=== PATIENT | female | born 1990 | race Caucasian/White ===

== ENCOUNTER 2017-10-14 08:02 | Day surgery (SDC) | payer MEDICAID ==
[~2017-10-14 08:02] MED LIST: ACETAMINOPHEN 1,000 MG/100 ML BTL IV ONE; CEFAZOLIN 2 Gram 2 GM/50 ML BAG IVPB ONE; FAMOTIDINE 20MG TABLET PO ONE; MECLIZINE 25 MG TABLET PO ONE; METOCLOPRAMIDE 10 MG TABLET PO ONE
[2017-10-14] MEDS ORDERED: LIDOCAINE 2% MDV (20MG/ML) 20ML VIAL IV ONE (08:03)
[2017-10-14] MEDS ORDERED: SCOPOLAMINE 1 PATCH TDSY TD ONE (08:03)
[2017-10-14] MEDS ORDERED: SEVOFLURANE 250 ML INH ONE (08:03)
[2017-10-14] MEDS ORDERED: ONDANSETRON HCL IV 4 MG/2 ML VIAL IVP ONE (08:03)
[2017-10-14] MEDS ORDERED: PROPOFOL 10 MG/ML VIAL IV ONE (08:03)
[2017-10-14] MEDS ORDERED: KETOROLAC 30 MG/ML VIAL IVP ONE (08:03)
[2017-10-14] MEDS ORDERED: SUFENTANIL CITRATE 50 MCG/ML AMPUL IV ONE (08:03)
--- NOTE | 2017-10-15 07:59 | Operative Note ---
DATE OF SURGERY: 10/14/2017. PREOPERATIVE DIAGNOSIS: Right knee anterior cruciate ligament rupture. POSTOPERATIVE DIAGNOSIS: Right knee anterior cruciate ligament rupture. OPERATION: Anterior cruciate ligament assisted reconstruction. Bone-patellar- tendon-bone autograft, right knee. SURGEON: Buck Collier M.D. ANESTHESIA: Spinal. COMPLICATIONS: None. ESTIMATED BLOOD LOSS: Minimal. OPERATIVE FINDINGS: Complete rupture of the anterior cruciate ligament. COMPONENTS PLACED: Two Arthrex Biointerference screws, sizes 8.0 mm x 23 mm and 7.0 mm x 23 mm. INDICATIONS: This is an 27-year-old female who fell and twisted her knee at home. She felt a pop and was diagnosed with an obvious anterior cruciate ligament by MRI. She scheduled for reconstruction. I explained to her all risks and benefits of surgery in detail for the diagnosis and procedures including but not limited to infection, nerve injury, vessel injury, persistent pain, stiffness, numbness and tingling in her knee, periprosthetic fracture, need for resection arthroplasty should the components become infected or loosened, re-rupture of the anterior cruciate ligament, the need for further procedures, and stiffness. All of her questions were answered. The treatment and course were outlined, and she agreed to proceed. PROCEDURE: The patient brought to the operating room. She was placed in the supine position and was prepared for surgery. Spinal anesthesia was induced. Her right lower extremity and knee were prepped and draped in sterile fashion. She had been placed in a nonsterile leg geronimo previously. The tourniquet was applied. The right knee was prepped again with ChloraPrep and draped. Intraoperative time out was performed. Next, preoperative examination revealed full knee range of motion with slight effusion. However, there was significant laxity with 2+ anterior drawer, Liseth's, and pivot shift. Next, we began to harvest the graft. I made an incision anterior to the knee and infiltrated with 0.5% Marcaine with epinephrine. The skin and subcutaneous tissue was dissected down to the patella and the tibial tubercle. We marked out 1.0 x 2.5 cm bone blocks proximally and distally. I then used the microsagittal saw to cut in 1.0 cm. I drilled two tag hole drill holes in each bone block. I placed #2 FiberWire sutures through them, and we connected to the bone plugs with a sharp #10 blade. I had a nice 10 mm [id number] autograft. We then prepped it on the back table for the 10 mm hole which was 100 mm in length. Attention was then turned to the arthroscopic examination. I placed superolateral inflow port and established medial and lateral ports. Diagnostic arthroscopy was performed. Suprapatellar pouch was inflamed and hemorrhagic but was otherwise normal. Medial gutter was the same and otherwise normal. The medial compartment was thoroughly probed. The meniscus was intact. The cartilage here was intact. There was no evidence of any cartilage damage here. The intracondylar notch revealed a complete avulsion of the anterior cruciate ligament at the femoral attachment. The posterior cruciate ligament was intact. The lateral compartment again showed normal cartilage and meniscus. The lateral gutter was normal. The patellofemoral compartment was again normal. Next, we inserted a combination of the tissue ablation devices and abdifatah and debrided back the tibial and femoral insertion surfaces of the anterior cruciate ligament finding our anatomic landmarks 9.0 mm posterior to the intrameniscal ligament and our bifurcate and intercondylar ridge on the femoral lateral condyle. Next, we then used low, inferomedial tunnel placement and flexed the knee to about 110 degrees. Inserted our guide pin and our target point 2.0 mm posterior and 8.0 mm anterior to the articular margin. Inserted the guide pins and came out the anterolateral thigh. I grasped it with a marni. We then placed the low-profile reamer and reamed a 30 mm depth x 10 mm wide hole. Next, I notched the superior portion of the hole layer for the set screw. Attention was then turned to the tibial tunnel. We dissected anteromedial tibial cortex. We placed our guide set at 55 degrees and a 50 mm length tunnel , again 9.0 mm posterior to the intrameniscal ligament and off the lateral border of the medial tibial eminence off the anterior edge of the anterior horn of the lateral meniscus. We targeted that point and inserted our guide pin. We had a good target and position. We checked it in flexion and extension. Next, we inserted the 10 mm reamer again and reamed the tunnel. We placed a cannula there. We then brought our exchange suture, #2 FiberWire loop, through the tibial tunnel. We loaded tag stitches for the femoral tunnel bone block and we passed that through. We teased it up and around and into the femoral tunnel, docking it deep within the femoral tunnel. We then notched the superior tunnel and then placed a Nitinol guide pin through the inferomedial portal again. We then tapped using a tibial sheath- protected cannula. We then inserted the 7.0 mm screw and had excellent purchase there. We fixed the bone block nicely there. We then cycled the knee through several ranges of motion to remove any stress relaxation. With the knee in 30 degrees of flexion, we notched the femoral tibial tunnel. Inserted a Nitinol. Inserted the screw and had a good purchase until it was flush with our bone tibial surface. Found that range of motion was full, from 0 to 150 degrees. Now 0 Liseth. Anterior and posterior drawer and pivot shift were 0. With extension, the ligament did not impinge on the roof either. We had good position and isometry previously. The graft did not move after affixing the femoral tunnel and not before we affixed the tibial tunnel with flexion and extension. Next, we irrigated copiously. Placed the bone plug, bone graft, bone trimmings in their patellar site. Closed the patellar tendon over the top using running # 2 Vicryl. Irrigated again. Closed the skin deep with #2-0 Vicryl and camelia. Injected the knee with 0.5% Marcaine with epinephrine and Exparel. Toradol IV. A sterile dressing was applied. The knee immobilizer was locked at 0 degrees. The patient tolerated the procedure well. No intraoperative complications. Sponge, needle, and blade counts correct. Recovery room stable, neurovascularly intact. She will be discharged as an outpatient. She will have a home therapy nurse. She will follow up in two weeks. cc: Edu Cummins M.D. JOB NUMBER: [id number] MTDD
== END 2017-10-14 14:30 | disposition home or self-care (01) ==
LOC: SUR 08:02
PROVIDERS: ATTEND Orthopaedic Surgery
DX: S83.31XA Tear of articular cartilage of right knee, current, initial encounter (principal); W19.XXXA Unspecified fall, initial encounter; Y93.9 Activity, unspecified; Y92.019 Unspecified place in single-family (private) house as the place of occurrence of the external cause
CPT/HCPCS: 29888; 29866; 01400; J1885; J2405; J0690